=== PATIENT | male | born 1980 | race Caucasian/White ===

== ENCOUNTER 2025-02-11 14:42 | Emergency (ER) | payer OTHER, SELFPAY ==
[2025-02-11] VITALS (8 sets, daily range): BP systolic 119–154; BP diastolic 86–102; PULSE 62–77; RESP 16–18; TEMP 36.6–36.9; O2SAT 96–99; BMI 30.5
--- NOTE | 2025-02-11 15:02 | XR_ITS ---
PROCEDURE INFORMATION: Exam: XR Chest Exam date and time: 02/11/2025 3:28 PM Age: 44 years old Clinical indication: Other: Chronic smoker; Additional info: Chronic smoking, confusion TECHNIQUE: Imaging protocol: Radiologic exam of the chest. Views: 1 view. COMPARISON: No relevant prior studies available. FINDINGS: Lungs: Unremarkable. No consolidation. Pleural spaces: Unremarkable. No pleural effusion. No pneumothorax. Heart/Mediastinum: Unremarkable. No cardiomegaly. Bones/joints: Unremarkable. IMPRESSION: No acute findings.
--- NOTE | 2025-02-11 15:02 | CT_ITS ---
PROCEDURE INFORMATION: Exam: CT Head Without Contrast Exam date and time: 02/11/2025 3:31 PM Age: 44 years old Clinical indication: Other: Confusion TECHNIQUE: Imaging protocol: Computed tomography of the head without contrast. Radiation optimization: All CT scans at this facility use at least one of these dose optimization techniques: automated exposure control; mA and/or kV adjustment per patient size (includes targeted exams where dose is matched to clinical indication); or iterative reconstruction. COMPARISON: No relevant prior studies available. FINDINGS: Brain: Normal. No hemorrhage. Unremarkable white matter. No mass effect. Cerebral ventricles: No ventriculomegaly. Paranasal sinuses: Visualized sinuses are unremarkable. No fluid levels. Mastoid air cells: Visualized mastoid air cells are well aerated. Bones: Unremarkable. No acute fracture. Soft tissues: Unremarkable. IMPRESSION: No acute intracranial abnormality.
--- NOTE | 2025-02-11 15:04 | HMH.EDGENADL ---
Discharge Plan Disposition Patient Disposition: Home, Self-Care Condition: Good Referrals Follow up/Referrals: Toño Castro MD [Primary Care Provider, Family Practice] - See instructions Activity Restrictions/Add. Instructions Additional Instructions/Restrictions: You were evaluated in the emergency department today. At this time, your CT scans and workup are reassuring. Your labs also are normal. You may benefit from close outpatient follow-up for further workup and imaging, such as MRI, which will show more detail than CT scan. We are not able to get these in the emergency department. Follow-up closely with the primary care provider over the next 72 hours. Return to the emergency department for new or worsening symptoms. Clinical Impressions Clinical Impression: Confusion, Cervical radiculopathy, Arm paresthesia, right Stand Alone Forms Stand Alone Forms: Work/School Release Instructions Patient Instructions: DI for Cervical Radiculopathy, DI for Numbness/Tingling Print Language Print Language: Kyrgyz Discharge ED Provider: Nimisha Olmstead General Adult HPI <J Oscar Olivera MD - Last Filed: 02/11/25 15:08> General Chief complaint: Dizziness Stated complaint: R arm numbness, intermittent confusion Time Seen by Provider: 02/11/25 14:43 History of Present Illness HPI narrative: Patient is a 44-year-old male with a history of hypercholesterolemia who presents today with multiple complaints and 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 No weakness. No injuries to his neck that he is aware of. He also states he has been intermittently dizzy particular when he stopped driving also has been confused according to his . She is very concerned that he is going to have a heart attack. He said no chest pain no exertional symptoms no shortness of breath. No loss of weight. Went to his primary care doctor in the past was told he had severely low vitamin D and had high cholesterol but no other medical problems that he is aware of. Currently is without any symptoms aside from some tingling in his right hand. Related Data Allergies Allergy/AdvReac Type Severity Reaction Status Date / Time Penicillins Allergy Intermediate Unknown Verified 02/11/25 15:12 allergy reaction bee venom protein (honey bee) Allergy Unknown Verified 02/11/25 15:13 allergy reaction PFS <Jeremiah Olivera MD - Last Filed: 02/11/25 15:08> [facility] Disclaimer: The information contained in this section may have been updated after the patient was seen, as this information can be updated by other users. Social History (Updated 02/11/25 @ 15:08 by Jeremiah Olivera MD) Smoking Status: Current every day smoker alcohol intake: never current occupational status: other Travel in the last 8 weeks?: None Have you lived/traveled outside [place] in past 30 days?: No Contact w/someone who lives/traveled outside [place] past 30 days?: No Exposure to someone with infectious disease in past 14 days?: No Do you have a fever (greater than 100.4 F or 38 C)?: No Have you tested positive for COVID-19?: No Exposed to someone with COVID-19 in past 14 days?: No Do you have a sore throat?: No Do you have a cough?: No Do you have any weakness?: No Do you have any diarrhea?: No Are you experiencing any unusual bleeding?: No Do you have any muscle aches/pain?: No Do you have any abdominal pain?: No Are you experiencing loss of taste or smell?: No <Jeremiah Olivera MD - Last Filed: 02/11/25 15:08> ROS Obtained: Yes All systems reviewed & no additional complaints except as documented Physical Exam <Jeremiah Olivera MD - Last Filed: 02/11/25 15:08> General General appearance: alert and in no apparent distress Respiratory Respiratory exam: Present normal lung sounds bilaterally Cardiovascular Cardiovascular exam: Present regular rate Extremities Exam Extremities exam: Present other (Normal right upper extremity exam including median ulnar radial and axillary nerve sensory and motor functioning also has 2+ radial and ulnar pulses) Neurological Exam Neurological exam: Present alert, oriented X3, CN II-XII intact, normal gait and other (Normal finger-nose hnvz-mg-snrt rapid alternating movements Romberg heel-to-toe walking also has normal to point discrimination and normal temperature sharp touch on his right upper extremity distally in all fingers); Absent motor sensory deficit Medical Decision Making <Jeremiah Olivera MD - Last Filed: 02/11/25 15:08> Medical Records Screening: Per USPSTF and CDC recommendations, given the prevalence of disease in our region, it is our hospital?s policy to screen for HIV and viral Hepatitis for all patients aged 18 and over and those with ongoing risk factors. Ramon Inquiry Pt receiving controlled substance: No Vital Signs: 02/11/25 14:43 02/11/25 14:43 02/11/25 14:47 Temperature 98.4 F 98.4 F Temperature Source Oral Pulse Rate 62 63 Pulse Rate [Right] 62 Respiratory Rate 18 18 Blood Pressure 154/92 H 154/92 H Blood Pressure [Right Arm] 154/92 H Blood Pressure Mean [Right Arm] 112 Blood Pressure Source Blood Pressure Source [Right Arm] Automatic Cuff Blood Pressure Position Blood Pressure Position [Right Arm] Sitting 02 Sat by Pulse Oximetry 99 99 98 Oxygen Delivery Method Room Air Room Air 02/11/25 15:00 02/11/25 15:20 02/11/25 15:41 Temperature Temperature Source Pulse Rate 77 71 67 Pulse Rate [Right] Respiratory Rate Blood Pressure 133/88 144/102 H 119/87 Blood Pressure [Right Arm] Blood Pressure Mean [Right Arm] Blood Pressure Source Blood Pressure Source [Right Arm] Blood Pressure Position Blood Pressure Position [Right Arm] 02 Sat by Pulse Oximetry 96 96 96 Oxygen Delivery Method Room Air Room Air Room Air 02/11/25 16:20 02/11/25 16:40 02/11/25 17:06 Temperature 98 F Temperature Source Oral Pulse Rate 68 68 64 Pulse Rate [Right] Respiratory Rate 16 Blood Pressure 130/86 120/89 127/96 H Blood Pressure [Right Arm] Blood Pressure Mean [Right Arm] Blood Pressure Source Automatic Cuff Blood Pressure Source [Right Arm] Blood Pressure Position Sitting Blood Pressure Position [Right Arm] 02 Sat by Pulse Oximetry 97 97 Oxygen Delivery Method Room Air Room Air Room Air Lab Data Lab Results 02/11/25 15:03: VBG pH 7.36, VBG pCO2 40.9, VBG pO2 47.1 H, VBG HCO3 22.8 L, VBG Total CO2 24.1, VBG O2 Saturation 83.3 H, VBG Base Excess -2.6 L, VBG Lactic Acid 1.4 02/11/25 15:30: WBC 7.1, RBC 6.07, Hgb 16.8, Hct 49.2, MCV 81.1, MCH 27.7, MCHC 34.1, RDW 13.9, Plt Count 229, MPV 10.1, Neut % (Auto) 53.1, Lymph % (Auto) 34.0, Coffee % (Auto) 7.8, Eos % (Auto) 4.1, Baso % (Auto) 0.7, Neut # (Auto) 3.7, Lymph # (Auto) 2.4, Coffee # (Auto) 0.6, Eos # (Auto) 0.3, Baso # (Auto) 0.1, PT 10.5, INR 0.94, Sodium 137, Potassium 4.2, Chloride 104, Carbon Dioxide 26, Anion Gap 11.2, BUN 15, Creatinine 0.90, Estimated Creat Clear 128, Estimated GFR 91, Est GFR ( Amer) 110, Glucose 98, Hemoglobin A1c 5.7, Calcium 9.5, Total Bilirubin 0.6, AST 44, ALT 95 H, Alkaline Phosphatase 89, Ammonia 19, Troponin I < 0.01, Total Protein 8.1, Albumin 4.8, Globulin 3.3 H, Albumin/Globulin Ratio 1.5, TSH 0.83 02/11/25 15:30 02/11/25 15:30 Orders (Tests/Meds): ORDERS Category Date Time Status CT head/brain wo con Stat Cat Scan 02/11/25 15:02 Completed Chest XR -- portable [XR chest portable] Stat Exams 02/11/25 15:02 Completed Ammonia Stat Lab 02/11/25 15:30 Completed CBC w/Auto Diff [Complete Blood Count Auto Diff] Stat Lab 02/11/25 15:30 Completed CMP [Comprehensive Metabolic Panel] Stat Lab 02/11/25 15:30 Completed Hemoglobin A1C Stat Lab 02/11/25 15:30 Completed PT INR [Prothrombin Time INR] Stat Lab 02/11/25 15:30 Completed TSH [Thyroid Stimulating Hormone] Stat Lab 02/11/25 15:30 Completed Trop I [Troponin I] Stat Lab 02/11/25 15:30 Completed Blood Culture Stat Micro 02/11/25 16:01 Received Venous Blood Gas Stat RT 02/11/25 15:03 Completed Medical Decision Narrative: Patient with above history and physical. His right upper extremity exam is normal specifically normal arterial exam normal neurologic exam. He has normal to point discrimination this is not consistent with a neuropathy. Most likely he has some paresthesias secondary to having some cervical radiculopathy as he has some discomfort radiating down his arm. No indication for emergency MRI or CAT scan at this point. Patient has been confused and will get a CT scan of the patient's head however he has a nonfocal neurologic exam is not consistent with a stroke. Additionally his is at the bedside is very where they seem to have had a heart attack I told her I cannot definitively prognosticate him being at no risk however I discussed with her that they have been being managed for modifiable risk factors. Will get a slew of a workup given his confusion and his numerous symptoms today. Care will be transitioned to Dr. Olmstead at 3 PM <Nimisha Olmstead, DO - Last Filed: 02/11/25 22:04> Vital Signs: 02/11/25 14:43 02/11/25 14:43 02/11/25 14:47 Temperature 98.4 F 98.4 F Temperature Source Oral Pulse Rate 62 63 Pulse Rate [Right] 62 Respiratory Rate 18 18 Blood Pressure 154/92 H 154/92 H Blood Pressure [Right Arm] 154/92 H Blood Pressure Mean [Right Arm] 112 Blood Pressure Source Blood Pressure Source [Right Arm] Automatic Cuff Blood Pressure Position Blood Pressure Position [Right Arm] Sitting 02 Sat by Pulse Oximetry 99 99 98 Oxygen Delivery Method Room Air Room Air 02/11/25 15:00 02/11/25 15:20 02/11/25 15:41 Temperature Temperature Source Pulse Rate 77 71 67 Pulse Rate [Right] Respiratory Rate Blood Pressure 133/88 144/102 H 119/87 Blood Pressure [Right Arm] Blood Pressure Mean [Right Arm] Blood Pressure Source Blood Pressure Source [Right Arm] Blood Pressure Position Blood Pressure Position [Right Arm] 02 Sat by Pulse Oximetry 96 96 96 Oxygen Delivery Method Room Air Room Air Room Air 02/11/25 16:20 02/11/25 16:40 02/11/25 17:06 Temperature 98 F Temperature Source Oral Pulse Rate 68 68 64 Pulse Rate [Right] Respiratory Rate 16 Blood Pressure 130/86 120/89 127/96 H Blood Pressure [Right Arm] Blood Pressure Mean [Right Arm] Blood Pressure Source Automatic Cuff Blood Pressure Source [Right Arm] Blood Pressure Position Sitting Blood Pressure Position [Right Arm] 02 Sat by Pulse Oximetry 97 97 Oxygen Delivery Method Room Air Room Air Room Air Lab Data Lab Results 02/11/25 15:03: VBG pH 7.36, VBG pCO2 40.9, VBG pO2 47.1 H, VBG HCO3 22.8 L, VBG Total CO2 24.1, VBG O2 Saturation 83.3 H, VBG Base Excess -2.6 L, VBG Lactic Acid 1.4 02/11/25 15:30: WBC 7.1, RBC 6.07, Hgb 16.8, Hct 49.2, MCV 81.1, MCH 27.7, MCHC 34.1, RDW 13.9, Plt Count 229, MPV 10.1, Neut % (Auto) 53.1, Lymph % (Auto) 34.0, Coffee % (Auto) 7.8, Eos % (Auto) 4.1, Baso % (Auto) 0.7, Neut # (Auto) 3.7, Lymph # (Auto) 2.4, Coffee # (Auto) 0.6, Eos # (Auto) 0.3, Baso # (Auto) 0.1, PT 10.5, INR 0.94, Sodium 137, Potassium 4.2, Chloride 104, Carbon Dioxide 26, Anion Gap 11.2, BUN 15, Creatinine 0.90, Estimated Creat Clear 128, Estimated GFR 91, Est GFR ( Amer) 110, Glucose 98, Hemoglobin A1c 5.7, Calcium 9.5, Total Bilirubin 0.6, AST 44, ALT 95 H, Alkaline Phosphatase 89, Ammonia 19, Troponin I < 0.01, Total Protein 8.1, Albumin 4.8, Globulin 3.3 H, Albumin/Globulin Ratio 1.5, TSH 0.83 Orders (Tests/Meds): ORDERS Category Date Time Status CT head/brain wo con Stat Cat Scan 02/11/25 15:02 Completed Chest XR -- portable [XR chest portable] Stat Exams 02/11/25 15:02 Completed Ammonia Stat Lab 02/11/25 15:30 Completed CBC w/Auto Diff [Complete Blood Count Auto Diff] Stat Lab 02/11/25 15:30 Completed CMP [Comprehensive Metabolic Panel] Stat Lab 02/11/25 15:30 Completed Hemoglobin A1C Stat Lab 02/11/25 15:30 Completed PT INR [Prothrombin Time INR] Stat Lab 02/11/25 15:30 Completed TSH [Thyroid Stimulating Hormone] Stat Lab 02/11/25 15:30 Completed Trop I [Troponin I] Stat Lab 02/11/25 15:30 Completed Blood Culture Stat Micro 02/11/25 16:01 Received Venous Blood Gas Stat RT 02/11/25 15:03 Completed Medical Decision Narrative: Patient with above history and physical. His right upper extremity exam is normal specifically normal arterial exam normal neurologic exam. He has normal to point discrimination this is not consistent with a neuropathy. Most likely he has some paresthesias secondary to having some cervical radiculopathy as he has some discomfort radiating down his arm. No indication for emergency MRI or CAT scan at this point. Patient has been confused and will get a CT scan of the patient's head however he has a nonfocal neurologic exam is not consistent with a stroke. Additionally his is at the bedside is very where they seem to have had a heart attack I told her I cannot definitively prognosticate him being at no risk however I discussed with her that they have been being managed for modifiable risk factors. Will get a slew of a workup given his confusion and his numerous symptoms today. Care will be transitioned to Dr. Olmstead at 3 PM DO Ishan: I assumed care of the patient at 3 PM at time of departure of the previous provider. On my assessment, he is sitting upright in no acute distress and is asymptomatic with reassuring vitals on cardiac telemetry. I independently interpreted CT scan prior radiology read and noted no intracranial hemorrhage or area that was concerning for acute stroke. I do not see any mass. Please radiology read for final interpretation. Labs obtained are reassuring with no significant leukocytosis or anemia on CBC, normal chemistry with exception of very mildly elevated AST. Troponin is negative, EKG is reassuring. Ultimately, I feel that we have excluded acute life-threatening pathology as a cause of his symptoms and he is appropriate for discharge home with further follow-up with PCP for assessment. It is possible that he could have cervical radiculopathy as a cause of his intermittent numbness and tingling. Ultimately, he was discharged with plan for close outpatient follow-up on Thursday with PCP and strict return precautions. Critical Care <Jeremiah Olivera MD - Last Filed: 02/11/25 15:08> Critical Care Time Critical Care Time: No
--- NOTE | 2025-02-11 15:12 | ECG_ITS ---
APPROVED REPORT Exam: Resting ECG HR:69 bpm ECG Measurements Heart Rate 69 AXES IN 153 P 21 QRSd 93 QRS 56 QT 362 T 32 QTc 381 Conclusion SINUS RHYTHM NORMAL ECG Electronically signed by : LAURIE CATES, 02/12/2025 07:27:23
[2025-02-11 15:40] LABS: Hematocrit 49.2 % (42.0-52.0); Hemoglobin 16.8 g/dL (14.1-18.0); Immature Granulocytes % 0.3 %; Mean Corpuscular HGB Conc 34.1 g/dL (31.8-35.4); Mean Corpuscular Hemoglobin 27.7 pg (27.0-31.2); Mean Corpuscular Volume 81.1 fl (80-94); Nucleated Red Blood Cells % 0 %; Platelet Count 229 K/mm3 (142-424); Red Blood Count 6.07 M/mm3 (4.60-6.20); Red Cell Distribution Width-SD 40.6 fL; White Blood Count 7.1 K/mm3 (4.8-10.8)
[2025-02-11 15:47] LABS: VBG PCO2 40.9 mmol/L (35-51); VBG PH 7.36 mmol/L (7.31-7.41)
[2025-02-11 15:48] LABS: Lactate Venous 1.4 mmol/L (0.4-2.0); VBG HCO3 22.8 mmol/L (23-30); VBG PO2 47.1 mmol/L (28-40)
[2025-02-11 15:49] LABS: Chloride 104 mmol/L (98-107)
[2025-02-11 15:50] LABS: Albumin Level 4.8 g/dl (3.5-5.0); Potassium 4.2 mmoL/L (3.5-5.1); Sodium 137 mmol/L (136-145)
[2025-02-11 15:52] LABS: Blood Urea Nitrogen 15 mg/dl (9-20); Creatinine Clearance Estimated 128 mL/min (50-200); Creatinine,Serum 0.90 mg/dl (0.66-1.25); Estimated Glomerular Filt Rate 91 ml/min (>60); GFR (African American) 110 ML/MIN (>60)
[2025-02-11 15:53] LABS: Alanine Aminotransferase 95 U/L (12-78); Albumin/Globulin Ratio 1.5 (1.1-1.8); Alkaline Phosphatase 89 U/L (38-126); Ammonia 19 umol/L (9-30); Anion Gap 11.2 mEq/L (5-15); Aspartate Amino Transferase 44 U/L (17-59); Bilirubin,Total 0.6 mg/dl (0.2-1.3); Calcium 9.5 mg/dl (8.4-10.2); Carbon Dioxide 26 mmol/L (22.0-30.0); Globulin 3.3 g/dL (1.3-3.2); Glucose 98 mg/dl (74-100); Total Protein,Serum 8.1 g/dl (6.3-8.2)
[2025-02-11 15:55] LABS: INR 0.94 (0.9-1.1); Prothrombin Time 10.5 seconds (10.1-12.5)
[2025-02-11 16:07] LABS: Hemoglobin A1C 5.7 % (4.0-6.0); Troponin I < 0.01 ng/ml (0.00-0.034)
[2025-02-11 16:24] LABS: Thyroid Stimulating Hormone 0.83 uIU/mL (0.465-4.68)
== END 2025-02-11 17:08 | disposition home or self-care (01) ==
PROVIDERS: Student in an Organized Health Care Education/Training Program; Emergency Provider Emergency Medicine; PCP Family Medicine
DX: M54.12 Radiculopathy, cervical region (principal); R20.2 Paresthesia of skin; R41.0 Disorientation, unspecified; F17.210 Nicotine dependence, cigarettes, uncomplicated; E78.00 Pure hypercholesterolemia, unspecified
CPT/HCPCS: 70450; 71045; 80053; 82140; 82803; 83036; 84443; 84484; 85025; 85610; 87040; 93005; 99285

== ENCOUNTER 2025-02-18 13:39 | Outpatient (CLI) | payer OTHER, SELFPAY ==
--- NOTE | 2025-02-18 13:41 | XR_ITS ---
PROCEDURE INFORMATION: Exam: XR Cervical Spine Exam date and time: 02/18/2025 2:51 PM Age: 44 years old Clinical indication: Other: Right arm paresthesias, cervical radiculopathy TECHNIQUE: Imaging protocol: Radiologic exam of the cervical spine. Views: 2 or 3 views. COMPARISON: CT HEAD/BRAIN WO CON 02/11/2025 3:31 PM FINDINGS: Bones/joints: Normal. No acute fracture. Normal alignment. Soft tissues: Unremarkable. IMPRESSION: No acute findings.
[2025-02-18 15:04] LABS: Hematocrit 48.8 % (42.0-52.0); Hemoglobin 15.8 g/dL (14.1-18.0); Immature Granulocytes % 0.5 %; Mean Corpuscular HGB Conc 32.4 g/dL (31.8-35.4); Mean Corpuscular Hemoglobin 27.0 pg (27.0-31.2); Mean Corpuscular Volume 83.3 fl (80-94); Nucleated Red Blood Cells % 0 %; Platelet Count 224 K/mm3 (142-424); Red Blood Count 5.86 M/mm3 (4.60-6.20); Red Cell Distribution Width-SD 43.1 fL; White Blood Count 13.0 K/mm3 (4.8-10.8)
[2025-02-18 15:20] LABS: Albumin Level 3.9 g/dl (3.5-5.0); Chloride 105 mmol/L (98-107); Potassium 4.3 mmoL/L (3.5-5.1); Sodium 138 mmol/L (136-145)
[2025-02-18 15:23] LABS: Alanine Aminotransferase 74 U/L (12-78); Albumin/Globulin Ratio 1.1 (1.1-1.8); Alkaline Phosphatase 83 U/L (38-126); Anion Gap 11.3 mEq/L (5-15); Aspartate Amino Transferase 27 U/L (17-59); Bilirubin,Total 0.4 mg/dl (0.2-1.3); Blood Urea Nitrogen 17 mg/dl (9-20); Calcium 9.5 mg/dl (8.4-10.2); Carbon Dioxide 26 mmol/L (22.0-30.0); Cholesterol 178 mg/dl (140-200); Creatinine,Serum 0.90 mg/dl (0.66-1.25); Estimated Glomerular Filt Rate 91 ml/min (>60); GFR (African American) 110 ML/MIN (>60); Globulin 3.4 g/dL (1.3-3.2); Glucose 101 mg/dl (74-100); HDL Cholesterol 51 mg/dl (40-60); Total Protein,Serum 7.3 g/dl (6.3-8.2); Triglycerides 154 mg/dl (30-150)
[2025-02-18 16:05] LABS: 25-OH Vitamin D, Total 55.5 ng/mL (30-100)
[2025-02-18 17:37] LABS: Hemoglobin A1C 5.8 % (4.0-6.0)
[2025-02-18 19:14] LABS: Vitamin B12 312 pg/mL (239-931)
== END 2025-02-18 23:59 | disposition home or self-care (01) ==
LOC: LAB 13:41
PROVIDERS: PCP Family Medicine; Visit Provider Nurse Practitioner
DX: M54.12 Radiculopathy, cervical region (principal); E78.5 Hyperlipidemia, unspecified; R20.2 Paresthesia of skin; R53.83 Other fatigue; Z86.39 Personal history of other endocrine, nutritional and metabolic disease; R40.0 Somnolence; R06.83 Snoring; E55.9 Vitamin D deficiency, unspecified
CPT/HCPCS: 36415; 72040; 80053; 80061; 82043; 82306; 82570; 82607; 83036; 85025

== ENCOUNTER 2025-04-26 16:22 | Outpatient (CLI) | payer OTHER, SELFPAY ==
[2025-04-26 22:24] LABS: Hepatitis C Ab Qual. W/ RFX NEGATIVE (Negative)
[2025-04-28 09:41] LABS: Hepatitis B Surface Antigen Negative (Negative)
[2025-04-28 11:12] LABS: Testosterone,Total 343 ng/dL (264-916)
== END 2025-04-26 23:59 ==
LOC: LAB.DROPOF 04-28 01:40
PROVIDERS: PCP Family Medicine; Visit Provider Family Medicine
DX: N52.9 Male erectile dysfunction, unspecified (principal); R53.83 Other fatigue; Z11.59 Encounter for screening for other viral diseases
CPT/HCPCS: 84403; 86803; 87340; 87389